=== PATIENT | female | born 1925 | race Caucasian/White ===

== ENCOUNTER 2016-12-12 06:16 | Emergency (ER) | payer MEDICARE ==
[~2016-12-12 06:16] MED LIST: AVELOX400 MG PO; BENICAR20 M1 PO; CELEBREX200 MG PO; COMPAZINE10 M PO; COREG12.5 M1 PO; COREG6.25 MG PO; DECLOMYCIN PO; DIOVAN40 MG PO; DOCUSATE SODIU100 M2 PO; FOLIC ACID1 MG PO; HYDROCODON-ACE1 EA16 PO; HYDROXYCHLOROQ200 MG PO; LISINOPRIL2.5 MG PO; LOSARTAN POTASS25 MG PO; MECLIZINE HCL12.5 M3 PO; METHOTREXATE2.5 MG PO; MIRALAX17 G1 PO; NORCO 5/325 TAB1 TAB PO; NORCO 5/3251 TA2 PO; NORCO 7.5/325 T1 TAB PO; ONDANSETRON HCL4 M2 PO; PERCOCET 5/3251 TAB PO; PLAQUENIL200 MG PO; PROMETHAZINE12.5 M2 PO; PROTONIX40 M1 PO; PROTONIX40 M2 PO; ROBAXIN750 MG/TA1 PO; SODIUM CHLORIDE PO; STOOL SOFTENER1 EAC1 PO; TOPROL PO; TYLENOL EXTRA500 MG PO; TYLENOL325 M1 PO; VITAMIN D1000 UNI1 PO; VITAMIN D1000 UNI2 PO; VITAMIN D1000 UNI3 PO; VITAMIN D1000 UNIT PO; ZOFRAN4 M1 PO; ZOFRAN4 MG PO; [UNRECOGNIZED DRUG - OTHER] PO; [UNRECOGNIZED DRUG - OTHER] PO; [UNRECOGNIZED DRUG - REMARK] PO
[2016-12-12] MEDS ORDERED: CYMBALTA60 M1 PO (06:54)
[2016-12-12] MEDS ORDERED: COREG3.125 M1 PO (06:54)
[2016-12-12] MEDS ORDERED: PLAVIX75 M1 PO (06:54)
[2016-12-12] MEDS ORDERED: REMERON15 M1 PO (06:55)
[2016-12-12] MEDS ORDERED: ATORVASTATIN CA20 M1 PO (06:55)
[2016-12-12] MEDS ORDERED: DOC-Q-LACE100 M2 PO (06:56)
[2016-12-12] MEDS ORDERED: DITROPAN XL5 M3 PO (06:56)
[2016-12-12] MEDS ORDERED: FOLIC ACID1 M1 PO (06:56)
[2016-12-12] MEDS ORDERED: NORCO 5-325 TA1 EACH PO (06:57)
[2016-12-12 07:19] LABS: BASO % 0.1 % (0-2); EOS % 0.2 % (0-7); HCT-HEMATOCRIT 35.5 % (34.0-49.0); HGB-HEMOGLOBIN 11.9 gm/dl (12.0-15.5); IMMATURE GRANULOCYTES ABSOLUTE 0.05 tho/cmm (0-0.03); IMMATURE GRANULOCYTES PERCENT 0.3 % (0-0.3); LYMPH % 12.7 % (20-45); LYMPH ABSOLUTE COUNT 2.1 tho/cmm (0.8-4.5); MCH (MEAN CORPUSCULAR HGB) 32.6 pg (28.0-32.0); MCHC MEAN CORPUSCULAR HGB CONC 33.5 % (32.0-36.0); MCV (MEAN CELL VOLUME) 97.3 fl (82.0-96.0); MEAN PLATELET VOLUME 9.6 cmc (9.4-12.4); MONO % 5.4 % (0-12); MONOCYTE ABSOLUTE COUNT 0.9 tho/cmm (0.0-1.2); NEUTROPHIL ABSOLUTE COUNT 13.5 tho/cmm (1.6-8.0); NEUTROPHIL-AUTOMATED 13.5 tho/cmm (1.6-8.0); NEUTROPHILS % 81.3 % (40-80); PLATELET COUNT 165 tho/cmm (150-450); RED BLOOD COUNT 3.65 mil/cmm (4.00-5.20); RED CELL DISTRIBUTION WIDTH 13.4 % (12.4-16.4); WHITE BLOOD COUNT 16.6 tho/cmm (4.0-10.0)
[2016-12-12 07:36] LABS: ALBUMIN 3.7 g/dl (3.5-5.0); ALKALINE PHOSPHATASE 83 U/L (33-138); ALT/SGPT 51 U/L (12-78); ANION GAP 13 mmol/L (0-20); AST/SGOT 58 U/L (10-40); BILIRUBIN,TOTAL 0.9 mg/dl (0-1.5); BLOOD UREA NITROGEN 26 mg/dl (6-24); CALCIUM 8.6 mg/dl (8.5-10.5); CARBON DIOXIDE-VENOUS 25 mmol/L (22-32); CHLORIDE 101 mmol/l (96-110); CREATININE 0.92 mg/dl (0.50-1.10); GLUCOSE 118 mg/dL (70-110); POTASSIUM 3.9 mmol/L (3.7-5.1); SODIUM 135 mmol/L (135-145); eGFR VALUE FOR BLACK 64 mL/Min
[2016-12-12 07:45] LABS: URINE BILIRUBIN NEGATIVE (NEG); URINE BLOOD MODERATE (NEG); URINE GLUCOSE (UA) NEGATIVE (NEG); URINE KETONE NEGATIVE (NEG); URINE LEUKOCYTE ESTERASE NEGATIVE (NEG); URINE NITRITE NEGATIVE (NEG); URINE PROTEIN SMALL (NEG); URINE SPECIFIC GRAVITY 1.015 (1.003-1.030)
[2016-12-12 07:46] LABS: URINE APPEARANCE CLEAR; URINE COLOR YELLOW
[2016-12-12 07:59] LABS: URINE EPITHELIAL CELLS RARE /[HPF] (0-10); URINE RBC RARE /[HPF] (0-5); URINE WBC 0 /[HPF] (0-5)
[2016-12-12 08:02] LABS: PROCALCITONIN 0.12 ng/ml (0.05-0.09)
[2016-12-13] MEDS ORDERED: POLYETHYLENE GL17 G1 PO (12:50)
[2016-12-13] MEDS ORDERED: DEMADEX20 M1 PO (12:51)
== END 2016-12-12 11:40 ==
LOC: EDMED 06:16
PROVIDERS: Emergency Medicine
DX: J06.9 Acute upper respiratory infection, unspecified (principal); K59.00 Constipation, unspecified; M19.90 Unspecified osteoarthritis, unspecified site; I10 Essential (primary) hypertension; Z86.718 Personal history of other venous thrombosis and embolism; Z98.890 Other specified postprocedural states; Z79.899 Other long term (current) drug therapy
CPT/HCPCS: J2270; J2405; J7030; P9612; Q9967

== ENCOUNTER 2016-12-13 12:42 | Inpatient (IN) | payer MEDICARE ==
[2016-12-13 12:33] LABS: BASO % 0.1 % (0-2); EOS % 0.1 % (0-7); HCT-HEMATOCRIT 32.3 % (34.0-49.0); HGB-HEMOGLOBIN 10.8 gm/dl (12.0-15.5); IMMATURE GRANULOCYTES ABSOLUTE 0.04 tho/cmm (0-0.03); IMMATURE GRANULOCYTES PERCENT 0.3 % (0-0.3); LYMPH % 10.4 % (20-45); LYMPH ABSOLUTE COUNT 1.4 tho/cmm (0.8-4.5); MCH (MEAN CORPUSCULAR HGB) 32.7 pg (28.0-32.0); MCHC MEAN CORPUSCULAR HGB CONC 33.4 % (32.0-36.0); MCV (MEAN CELL VOLUME) 97.9 fl (82.0-96.0); MEAN PLATELET VOLUME 9.9 cmc (9.4-12.4); MONO % 7.2 % (0-12); NEUTROPHIL ABSOLUTE COUNT 10.8 tho/cmm (1.6-8.0); NEUTROPHIL-AUTOMATED 10.8 tho/cmm (1.6-8.0); NEUTROPHILS % 81.9 % (40-80); PLATELET COUNT 145 tho/cmm (150-450); RED CELL DISTRIBUTION WIDTH 13.7 % (12.4-16.4); WHITE BLOOD COUNT 13.2 tho/cmm (4.0-10.0)
[~2016-12-13 12:42] MED LIST changes: +ATORVASTATIN CA20 M1 PO; +COREG3.125 M1 PO; +CYMBALTA60 M1 PO; +DITROPAN XL5 M3 PO; +DOC-Q-LACE100 M2 PO; +FOLIC ACID1 M1 PO; +NORCO 5-325 TA1 EACH PO; +PLAVIX75 M1 PO; +REMERON15 M1 PO
[2016-12-13] MEDS ORDERED: POLYETHYLENE GL17 G1 PO (12:50)
[2016-12-13] MEDS ORDERED: DEMADEX20 M1 PO (12:51)
[2016-12-13 13:02] LABS: PROCALCITONIN 0.33 ng/ml (0.05-0.09)
[2016-12-14 03:44] LABS: URINE BILIRUBIN NEGATIVE (NEG); URINE BLOOD SMALL (NEG); URINE GLUCOSE (UA) NEGATIVE (NEG); URINE KETONE NEGATIVE (NEG); URINE LEUKOCYTE ESTERASE POSITIVE (NEG); URINE NITRITE NEGATIVE (NEG); URINE PROTEIN MODERATE (NEG); URINE SPECIFIC GRAVITY 1.015 (1.003-1.030)
[2016-12-14 03:55] LABS: URINE APPEARANCE HAZY; URINE COLOR YELLOW
[2016-12-14 04:36] LABS: URINE BACTERIA 2+; URINE EPITHELIAL CELLS RARE /[HPF] (0-10); URINE RBC 0-2 /[HPF] (0-5); URINE WBC 0-2 /[HPF] (0-5)
[2016-12-14 05:30] LABS: BASO % 0.2 % (0-2); EOS % 1.8 % (0-7); EOSINOPHIL ABSOLUTE COUNT 0.2 tho/cmm (0.0-0.7); HCT-HEMATOCRIT 31.4 % (34.0-49.0); HGB-HEMOGLOBIN 10.3 gm/dl (12.0-15.5); IMMATURE GRANULOCYTES ABSOLUTE 0.01 tho/cmm (0-0.03); IMMATURE GRANULOCYTES PERCENT 0.1 % (0-0.3); LYMPH % 18.7 % (20-45); LYMPH ABSOLUTE COUNT 1.6 tho/cmm (0.8-4.5); MCH (MEAN CORPUSCULAR HGB) 32.2 pg (28.0-32.0); MCHC MEAN CORPUSCULAR HGB CONC 32.8 % (32.0-36.0); MCV (MEAN CELL VOLUME) 98.1 fl (82.0-96.0); MONO % 10.4 % (0-12); MONOCYTE ABSOLUTE COUNT 0.9 tho/cmm (0.0-1.2); NEUTROPHIL ABSOLUTE COUNT 5.7 tho/cmm (1.6-8.0); NEUTROPHIL-AUTOMATED 5.7 tho/cmm (1.6-8.0); NEUTROPHILS % 68.8 % (40-80); PLATELET COUNT 133 tho/cmm (150-450); RED CELL DISTRIBUTION WIDTH 13.6 % (12.4-16.4); WHITE BLOOD COUNT 8.3 tho/cmm (4.0-10.0)
[2016-12-14 05:54] LABS: ALB/GLOB RATIO 0.8 (0.8-2.0); ALBUMIN 2.9 g/dl (3.5-5.0); ALKALINE PHOSPHATASE 101 U/L (33-138); ANION GAP 14 mmol/L (0-20); BILIRUBIN,DIRECT 0.2 mg/dl (0.0-0.3); BILIRUBIN,INDIRECT 0.4 mg/dL (0.0-1.0); BILIRUBIN,TOTAL 0.6 mg/dl (0-1.5); BLOOD UREA NITROGEN 31 mg/dl (6-24); CALCIUM 7.9 mg/dl (8.5-10.5); CARBON DIOXIDE-VENOUS 24 mmol/L (22-32); CHLORIDE 100 mmol/l (96-110); CREATININE 0.97 mg/dl (0.50-1.10); GLUCOSE 107 mg/dL (70-110); POTASSIUM 3.9 mmol/L (3.7-5.1); SODIUM 134 mmol/L (135-145); eGFR VALUE FOR BLACK 60 mL/Min
[2016-12-14 06:03] LABS: ALT/SGPT 160 U/L (12-78); AST/SGOT 155 U/L (10-40)
[2016-12-15 05:24] LABS: BASO % 0.3 % (0-2); EOS % 3.6 % (0-7); EOSINOPHIL ABSOLUTE COUNT 0.2 tho/cmm (0.0-0.7); HCT-HEMATOCRIT 30.6 % (34.0-49.0); IMMATURE GRANULOCYTES ABSOLUTE 0.02 tho/cmm (0-0.03); IMMATURE GRANULOCYTES PERCENT 0.3 % (0-0.3); LYMPH % 31.4 % (20-45); MCH (MEAN CORPUSCULAR HGB) 31.9 pg (28.0-32.0); MCHC MEAN CORPUSCULAR HGB CONC 32.7 % (32.0-36.0); MCV (MEAN CELL VOLUME) 97.8 fl (82.0-96.0); MEAN PLATELET VOLUME 10.3 cmc (9.4-12.4); MONO % 10.8 % (0-12); MONOCYTE ABSOLUTE COUNT 0.7 tho/cmm (0.0-1.2); NEUTROPHIL ABSOLUTE COUNT 3.5 tho/cmm (1.6-8.0); NEUTROPHIL-AUTOMATED 3.5 tho/cmm (1.6-8.0); NEUTROPHILS % 53.6 % (40-80); PLATELET COUNT 155 tho/cmm (150-450); RED BLOOD COUNT 3.13 mil/cmm (4.00-5.20); RED CELL DISTRIBUTION WIDTH 13.7 % (12.4-16.4); WHITE BLOOD COUNT 6.5 tho/cmm (4.0-10.0)
[2016-12-15 05:43] LABS: ALB/GLOB RATIO 0.8 (0.8-2.0); ALKALINE PHOSPHATASE 108 U/L (33-138); ALT/SGPT 149 U/L (12-78); ANION GAP 11 mmol/L (0-20); AST/SGOT 113 U/L (10-40); BILIRUBIN,TOTAL 0.5 mg/dl (0-1.5); BLOOD UREA NITROGEN 28 mg/dl (6-24); C-REACTIVE PROTEIN 12.7 mg/dl (0-0.9); CALCIUM 8.2 mg/dl (8.5-10.5); CARBON DIOXIDE-VENOUS 26 mmol/L (22-32); CHLORIDE 104 mmol/l (96-110); CREATININE 0.93 mg/dl (0.50-1.10); GLUCOSE 105 mg/dL (70-110); POTASSIUM 4.1 mmol/L (3.7-5.1); SODIUM 137 mmol/L (135-145); eGFR VALUE FOR BLACK 63 mL/Min
[2016-12-17 05:07] LABS: HGB-HEMOGLOBIN 9.8 gm/dl (12.0-15.5); PLATELET COUNT 182 tho/cmm (150-450)
[2016-12-17] MEDS ORDERED: AMPICILLIN IV (13:54)
[2016-12-17] MEDS ORDERED: NYSTOP60 GM EXT (13:58)
[2016-12-17] MEDS ORDERED: NYAMYC15 GM TOP (14:00)
== END 2016-12-17 15:10 | disposition home health service (06) | DRG 872 ==
LOC: EDMED 12:42 → EMR2 14:35 → 5WE 15:39
PROVIDERS: Emergency Medicine; Internal Medicine; Internal Medicine Infectious Disease; Nurse Practitioner Acute Care; ADMIT Hospitalist
PROC: 02HV33Z Insertion of Infusion Device into Superior Vena Cava, Percutaneous Approach (ICD-10-PCS; principal; 2016-12-14)
DX: A41.81 Sepsis due to Enterococcus (principal); D69.6 Thrombocytopenia, unspecified; I50.40 Unspecified combined systolic (congestive) and diastolic (congestive) heart failure; R00.1 Bradycardia, unspecified; I48.91 Unspecified atrial fibrillation; I13.0 Hypertensive heart and chronic kidney disease with heart failure and stage 1 through stage 4 chronic kidney disease, or unspecified chronic kidney disease; N18.3 Chronic kidney disease, stage 3 (moderate); M19.90 Unspecified osteoarthritis, unspecified site; Z85.3 Personal history of malignant neoplasm of breast; Z86.73 Personal history of transient ischemic attack (TIA), and cerebral infarction without residual deficits; Z79.02 Long term (current) use of antithrombotics/antiplatelets; Z88.8 Allergy status to other drugs, medicaments and biological substances; Z88.1 Allergy status to other antibiotic agents; L30.9 Dermatitis, unspecified; Z95.810 Presence of automatic (implantable) cardiac defibrillator; R10.9 Unspecified abdominal pain; Z96.612 Presence of left artificial shoulder joint; Z96.652 Presence of left artificial knee joint; D64.9 Anemia, unspecified; R74.0 Nonspecific elevation of levels of transaminase and lactic acid dehydrogenase [LDH]; J98.6 Disorders of diaphragm
CPT/HCPCS: C1751; J0290; J1580; J1650; J3370; J7030; J7050; Q9967